=== PATIENT | female | born 1950 | race Caucasian/White ===

== ENCOUNTER 2019-11-14 08:37 | Outpatient (CLI) | payer MEDICARE, OTHER ==
[2019-11-14 15:32] LABS: BASOPHILS % (AUTO) 0.6 %; EOSINOPHILS # (AUTO) 0.1 10^3/uL (0.0-0.7); HGB - HEMOGLOBIN 15.3 g/dL (12.0-16.0); LYMPHOCYTES # (AUTO) 2.7 10^3/uL (1.5-3.5); LYMPHOCYTES % (AUTO) 43.1 %; MEAN CORPUSCULAR HEMOGLOBIN 30.9 pg (27.0-31.0); MEAN CORPUSCULAR HGB CONC 32.8 g/dL (32.0-36.0); MEAN CORPUSCULAR VOLUME 94.1 fL (81.0-99.0); MONOCYTES # (AUTO) 0.4 10^3/uL (0.0-1.0); PLT - PLATELET COUNT 263 10^3/uL (130-450); RED BLOOD COUNT 4.95 10^6/uL (4.20-5.40); RED CELL DISTRIBUTION WIDTH 13.3 % (12.0-15.0); WHITE BLOOD COUNT 6.2 x10^3/uL (4.8-10.8)
[2019-11-14 16:53] LABS: % IRON SATURATION 31 % (20-50); ALBUMIN 4.2 g/dL (3.2-5.5); ALBUMIN/GLOBULIN RATIO 1.6 (1.0-2.2); ALKALINE PHOSPHATASE 44 IU/L (42-121); ALT ALANINE AMINOTRANSFERASE 19 IU/L (10-60); AST ASPARTATE AMINOTRANSFERASE 22 IU/L (10-42); BILIRUBIN,TOTAL 0.9 mg/dL (0.2-1.0); BUN - BLOOD UREA NITROGEN 11 mg/dL (6-20); CALCIUM 8.6 mg/dL (8.5-10.3); CARBON DIOXIDE - CO2 24 mmol/L (21-32); CHLORIDE 100 mmol/L (101-111); CHOL/HDL RATIO 2.7 (<4.4); CHOLESTEROL 178 mg/dL; CREATININE 0.8 mg/dL (0.4-1.0); GLUCOSE 86 mg/dL (70-100); HDL CHOLESTEROL 66 mg/dL; IRON 110 ug/dL (28-170); LDL CHOLESTEROL,CALCULATED 95 mg/dL; LDL/HDL RATIO 1.4 (<4.4); SODIUM 134 mmol/L (135-145); TOTAL IRON BINDING CAPACITY 357 ug/dL (250-450); TOTAL PROTEIN 6.8 g/dL (6.7-8.2); TRANSFERRIN 255 mg/dL (192-382); VLDL CHOLESTEROL 17 mg/dL
[2019-11-14 17:00] LABS: THYROID STIMULATING HORMONE 0.74 uIU/mL (0.34-5.60)
[2019-11-14 17:02] LABS: FREE T3 3.75 pg/mL (2.5-3.9)
[2019-11-14 17:04] LABS: FREE T4 (FREE THYROXINE) 0.74 ng/dL (0.58-1.64)
[2019-11-14 17:07] LABS: FERRITIN 154.4 ng/mL (11.0-306.8)
== END 2019-11-14 08:38 | disposition home or self-care (01) ==
LOC: LAB.S 08:37
PROVIDERS: ATTEND Internal Medicine Endocrinology, Diabetes & Metabolism
DX: E03.8 Other specified hypothyroidism (principal); R79.89 Other specified abnormal findings of blood chemistry; E55.9 Vitamin D deficiency, unspecified; R53.83 Other fatigue
CPT/HCPCS: 36415; 80053; 80061; 82306; 82728; 83540; 83721; 83970; 84439; 84443; 84466; 84481; 85025

== ENCOUNTER 2019-12-31 08:41 | Outpatient (CLI) | payer MEDICARE, OTHER ==
[2019-12-31 16:08] LABS: THYROID STIMULATING HORMONE 0.68 uIU/mL (0.34-5.60)
[2019-12-31 16:10] LABS: FREE T3 4.49 pg/mL (2.5-3.9); FREE T4 (FREE THYROXINE) 0.8 ng/dL (0.58-1.64)
[2019-12-31 16:53] LABS: ALBUMIN 4.4 g/dL (3.2-5.5); ALBUMIN/GLOBULIN RATIO 1.6 (1.0-2.2); ALKALINE PHOSPHATASE 53 IU/L (42-121); ALT ALANINE AMINOTRANSFERASE 21 IU/L (10-60); AST ASPARTATE AMINOTRANSFERASE 22 IU/L (10-42); BILIRUBIN,TOTAL 0.9 mg/dL (0.2-1.0); BUN - BLOOD UREA NITROGEN 11 mg/dL (6-20); CALCIUM 8.8 mg/dL (8.5-10.3); CARBON DIOXIDE - CO2 25 mmol/L (21-32); CHLORIDE 96 mmol/L (101-111); CHOL/HDL RATIO 2.4 (<4.4); CHOLESTEROL 202 mg/dL; CREATININE 0.7 mg/dL (0.4-1.0); GLUCOSE 91 mg/dL (70-100); HDL CHOLESTEROL 85 mg/dL; LDL CHOLESTEROL,CALCULATED 102 mg/dL; LDL/HDL RATIO 1.2 (<4.4); SODIUM 133 mmol/L (135-145); TOTAL PROTEIN 7.1 g/dL (6.7-8.2); VLDL CHOLESTEROL 15 mg/dL
== END 2019-12-31 08:42 | disposition home or self-care (01) ==
LOC: LAB.S 08:41
PROVIDERS: ATTEND Internal Medicine
DX: N28.9 Disorder of kidney and ureter, unspecified (principal); E78.2 Mixed hyperlipidemia; E20.0 Idiopathic hypoparathyroidism
CPT/HCPCS: 36415; 80053; 80061; 80069; 82248; 82306; 83721; 84439; 84443; 84481

== ENCOUNTER 2020-09-04 08:56 | Outpatient (CLI) | payer MEDICARE, OTHER ==
[2020-09-04 14:38] LABS: BASOPHILS % (AUTO) 0.7 %; EOSINOPHILS # (AUTO) 0.1 10^3/uL (0.0-0.7); EOSINOPHILS % (AUTO) 1.4 %; HCT - HEMATOCRIT 46.1 % (37.0-47.0); HGB - HEMOGLOBIN 15.5 g/dL (12.0-16.0); LYMPHOCYTES # (AUTO) 2.4 10^3/uL (1.5-3.5); LYMPHOCYTES % (AUTO) 42.5 %; MEAN CORPUSCULAR HEMOGLOBIN 31.7 pg (27.0-31.0); MEAN CORPUSCULAR HGB CONC 33.6 g/dL (32.0-36.0); MEAN CORPUSCULAR VOLUME 94.3 fL (81.0-99.0); MEAN PLATELET VOLUME 11.7 fL (7.9-10.8); MONOCYTES # (AUTO) 0.4 10^3/uL (0.0-1.0); MONOCYTES % (AUTO) 6.8 %; NEUTROPHILS # (AUTO) 2.7 10^3/uL (1.5-6.6); NEUTROPHILS % (AUTO) 48.4 %; PLT - PLATELET COUNT 248 10^3/uL (130-450); RED BLOOD COUNT 4.89 10^6/uL (4.20-5.40); RED CELL DISTRIBUTION WIDTH 14.3 % (12.0-15.0); WHITE BLOOD COUNT 5.6 x10^3/uL (4.8-10.8)
[2020-09-04 15:13] LABS: CHOL/HDL RATIO 2.6 (<4.4); CHOLESTEROL 228 mg/dL; HDL CHOLESTEROL 87 mg/dL; LDL CHOLESTEROL,CALCULATED 129 mg/dL; LDL/HDL RATIO 1.5 (<4.4); TRIGLYCERIDES 59 mg/dL; VLDL CHOLESTEROL 12 mg/dL
[2020-09-04 15:22] LABS: THYROID STIMULATING HORMONE 2.77 uIU/mL (0.34-5.60)
[2020-09-04 15:24] LABS: FREE T3 4.33 pg/mL (2.5-3.9); FREE T4 (FREE THYROXINE) 0.73 ng/dL (0.58-1.64)
[2020-09-05 12:06] LABS: HEPATITIS C ANTIBODY NON-REACTIVE (NON-REACTIVE)
== END 2020-09-04 08:57 | disposition home or self-care (01) ==
LOC: LAB.S 08:56
PROVIDERS: ATTEND Internal Medicine Endocrinology, Diabetes & Metabolism
DX: E89.0 Postprocedural hypothyroidism (principal); E20.9 Hypoparathyroidism, unspecified; E78.2 Mixed hyperlipidemia; E78.00 Pure hypercholesterolemia, unspecified; E55.9 Vitamin D deficiency, unspecified; M85.80 Other specified disorders of bone density and structure, unspecified site; Z11.59 Encounter for screening for other viral diseases; R79.89 Other specified abnormal findings of blood chemistry
CPT/HCPCS: 36415; 80061; 82306; 83721; 84439; 84443; 84481; 85025; 86803

== ENCOUNTER 2020-09-17 10:51 | Outpatient (CLI) | payer MEDICARE, OTHER ==
[2020-09-17 15:46] LABS: ALBUMIN 4.4 g/dL (3.2-5.5); ALBUMIN/GLOBULIN RATIO 1.6 (1.0-2.2); BILIRUBIN,TOTAL 0.9 mg/dL (0.2-1.0); CALCIUM 8.7 mg/dL (8.5-10.3); CREATININE 0.7 mg/dL (0.4-1.0); POTASSIUM 3.8 mmol/L (3.5-5.0); TOTAL PROTEIN 7.1 g/dL (6.7-8.2)
[2020-09-24 14:03] LABS: ENDOMYSIAL ANTIBODY SCR IGA NEGATIVE (NEGATIVE); GLIADIN (DEAMIDATED) AB IGA 5 U (<20); GLIADIN (DEAMIDATED) AB IGG 1 U (<20); IMMUNOGLOBULIN A 172 mg/dL (70-320); TISSUE TRANSGLUTAMINASE IGA <1 U/mL; TISSUE TRANSGLUTAMINASE IGG 1 U/mL
== END 2020-09-17 10:52 | disposition home or self-care (01) ==
LOC: LAB.S 10:51
PROVIDERS: ATTEND Internal Medicine Endocrinology, Diabetes & Metabolism
DX: E03.9 Hypothyroidism, unspecified (principal); M85.80 Other specified disorders of bone density and structure, unspecified site
CPT/HCPCS: 36415; 80053; 81599; 82340; 82570; 82784; 83516; 83970; 86255

== ENCOUNTER 2021-02-03 14:13 | Outpatient (CLI) | payer MEDICARE, OTHER | END 2021-02-03 14:14 | disposition home or self-care (01) | LOC: LAB.S 14:13 | PROVIDERS: ATTEND Internal Medicine Endocrinology, Diabetes & Metabolism | DX: Z53.9 Procedure and treatment not carried out, unspecified reason (principal) ==

== ENCOUNTER 2021-02-04 08:00 | Outpatient (CLI) | payer MEDICARE, OTHER ==
[2021-02-04 20:23] LABS: ALBUMIN 4.5 g/dL (3.2-5.5); ALBUMIN/GLOBULIN RATIO 1.6 (1.0-2.2); BILIRUBIN,TOTAL 0.8 mg/dL (0.2-1.0); CALCIUM 8.7 mg/dL (8.5-10.3); CREATININE 0.9 mg/dL (0.4-1.0); POTASSIUM 3.8 mmol/L (3.5-5.0); TOTAL PROTEIN 7.4 g/dL (6.7-8.2)
[2021-02-04 20:42] LABS: THYROID STIMULATING HORMONE 0.82 uIU/mL (0.34-5.60)
[2021-02-04 20:43] LABS: FREE T3 3.82 pg/mL (2.5-3.9)
[2021-02-04 20:44] LABS: FREE T4 (FREE THYROXINE) 0.62 ng/dL (0.58-1.64)
== END 2021-02-04 23:59 ==
LOC: LAB.S 08:00
PROVIDERS: ATTEND Internal Medicine Endocrinology, Diabetes & Metabolism
DX: E03.9 Hypothyroidism, unspecified (principal); M81.8 Other osteoporosis without current pathological fracture; R79.89 Other specified abnormal findings of blood chemistry
CPT/HCPCS: 36415; 80053; 81599; 82306; 82340; 82570; 83970; 84439; 84443; 84481

== ENCOUNTER 2021-03-16 07:00 | Outpatient (CLI) | payer MEDICARE, OTHER | END 2021-03-16 23:59 | disposition home or self-care (01) | LOC: LAB.R 07:00 | PROVIDERS: ATTEND Internal Medicine Endocrinology, Diabetes & Metabolism | DX: E03.9 Hypothyroidism, unspecified (principal); M81.8 Other osteoporosis without current pathological fracture; R79.89 Other specified abnormal findings of blood chemistry | CPT/HCPCS: 81599; 82340; 82570 ==

== ENCOUNTER 2021-12-12 20:51 | Emergency (ER) | payer MEDICARE, OTHER ==
[2021-12-12] MEDS ORDERED: KETOROLAC 15 MG/ML VIAL IVP STA (21:36)
[2021-12-12] MEDS ORDERED: SODIUM CHLORIDE 0.9% 1,000 ML IV STA (21:36)
[2021-12-12] MEDS ORDERED: DEXAMETHASONE 10 MG/ML VIAL IVP STA (21:36)
--- NOTE | 2021-12-12 21:40 | ED Physician Documentation ---
PD HPI HEADACHE - Stated complaint Stated Complaint: LT SIDE PX/SHAKING - Chief complaint Chief Complaint: Neuro - History obtained from History obtained from: Patient, Family - History of Present Illness Timing - onset: How many days ago (3) Timing - onset during: Rest Timing - duration: Days (3) Timing - details: Gradual onset, Still present Location: Left Quality: Throbbing Associated symptoms: Stiff neck, Nausea, Vomiting, Numbness Improved by: Rest Worsened by: Moving Contributing factors: Other (stress). No: Anticoagulated, Possible carbon monoxide, Hypertension, Recent illness, Trauma Similar symptoms before: Diagnosis (muscle spasm in neck) Recently seen: Not recently seen - Additional information Additional information: 70-year-old Kimberly Westbrook has a history of thyroid disease and parathyroid disease and she is under considerable stress with her being diagnosed with bladder cancer and undergoing treatment and she has developed a headache on the left side as well as some pain in her neck radiating down into her left anterior chest and left arm. She has some numbness to that area and she has some tenderness to the chest wall on the upper left. She felt this was likely due to the stress and the precipitant to come into the emergency department tonight was when she developed nausea and vomiting associated with this headache. PD PAST MEDICAL HISTORY - Past Medical History Past Medical History: Yes Cardiovascular: None Respiratory: Sleep apnea, CPAP use Neuro: Headaches Endocrine/Autoimmune: HyPOthyroidism GI: None CANDLE MOLDER: Ovarian cysts : None HEENT: None Psych: Panic attacks Musculoskeletal: None Derm: None - Past Surgical History Past Surgical History: Yes /CANDLE MOLDER: Other - Present Medications Home Medications: Ambulatory Orders Medication Instructions Recorded Confirmed Levothyroxine Sodium 50 mcg PO DAILY 12/12/21 12/12/21 [Levothyroxine] Liothyronine [Cytomel] 5 mcg ORAL BID 12/12/21 12/12/21 - Allergies Allergies/Adverse Reactions: Allergies Allergy/AdvReac Type Severity Reaction Status Date / Time No Known Drug Allergies Allergy Verified 12/12/21 20:56 - Social History Does the pt smoke?: No Smoking Status: Never smoker Does the pt drink ETOH?: Yes ETOH Use: Wine Does the pt have substance abuse?: Yes Substance Use and Type: CBD oil / Products - Immunizations Immunizations are current?: Yes PD ED PE NORMAL - Vitals Vital signs reviewed: Yes - General General: Alert and oriented X 3, No acute distress, Well developed/nourished - HEENT HEENT: Atraumatic, PERRL, EOMI - Neck Neck: Supple, no meningeal sign, No bony TTP, Other (left lateral neck pain to palpation. tense paraspinous muscles on exam. normal ROM with pain. ) - Cardiac Cardiac: RRR, No murmur, Other (chest wall tenderness anterior left upper) - Respiratory Respiratory: No respiratory distress, Clear bilaterally - Abdomen Abdomen: Soft, Non tender - Back Back: No CVA TTP, No spinal TTP - Derm Derm: Normal color, Warm and dry, No rash - Extremities Extremities: No deformity, No edema - Neuro Neuro: Alert and oriented X 3, paper spooler 2-12 intact, No motor deficit, No sensory deficit, Normal speech Eye Opening: Spontaneous Motor: Obeys Commands Verbal: Oriented GCS Score: 15 - Psych Psych: Normal mood, Normal affect Results - Vitals Vitals: Vital Signs - 24 hr 12/12/21 20:57 Temperature 36.3 C L Heart Rate 92 Respiratory 16 Rate Blood Pressure 146/71 H O2 Saturation 100 Oxygen O2 Source Room air - EKG (time done) 2109 Rate: Rate (enter#) (84) Rhythm: NSR QRS: Low voltage Other comments: Other comments (early transitions ) Compare to prior EKG: Old EKG unavailable Computer interpretation: Agree with computer - Labs Labs: Laboratory Tests 12/12/21 12/12/21 12/12/21 21:43 21:43 21:43 WBC 7.8 RBC 4.45 Hgb 14.1 Hct 40.4 MCV 90.8 MCH 31.7 H MCHC 34.9 RDW 14.4 Plt Count 249 MPV 10.5 Neut # (Auto) 4.1 Lymph # (Auto) 2.9 [place] # (Auto) 0.6 Eos # (Auto) 0.1 Baso # (Auto) 0.1 Absolute Nucleated RBC 0.00 Nucleated RBC % 0.0 Sodium 140 Potassium 4.0 Chloride 105 Carbon Dioxide 26 Anion Gap 9.0 BUN 22 H Creatinine 1.0 Estimated GFR (MDRD) 55 L Glucose 104 H Calcium 8.9 Total Bilirubin 0.5 AST 21 ALT 19 Alkaline Phosphatase 49 Troponin I High Sens 2.5 Total Protein 6.8 Albumin 4.3 Globulin 2.5 Albumin/Globulin Ratio 1.7 Lipase 41 TSH 12/12/21 21:43 WBC RBC Hgb Hct MCV MCH MCHC RDW Plt Count MPV Neut # (Auto) Lymph # (Auto) [place] # (Auto) Eos # (Auto) Baso # (Auto) Absolute Nucleated RBC Nucleated RBC % Sodium Potassium Chloride Carbon Dioxide Anion Gap BUN Creatinine Estimated GFR (MDRD) Glucose Calcium Total Bilirubin AST ALT Alkaline Phosphatase Troponin I High Sens Total Protein Albumin Globulin Albumin/Globulin Ratio Lipase TSH 4.43 - Rads (name of study) CT head Radiology: Prelim report reviewed (Impression: No trauma found, no sign of intracranial hemorrhage. No evidence for presence of acute or subacute ischemic injury.), EMP read indepedently, See rad report Procedures - IVC sono (time) 2129 Bedside IVC sono: IVC measures (cm) (0.81), IVC collapsed c insp (cm) (complete), Dehydration (est 1-2 liter deficit) PD MEDICAL DECISION MAKING - ED course Complexity details: reviewed old records, reviewed results, re-evaluated patient, considered differential, d/w patient, d/w family ED course: 70-year-old female with a history of headache for 3 days to the left side has spasm in the left side of her neck dense. She has developed pain into the left anterior chest wall and numbness down the left arm associated with this. She felt this is likely due to stress and she was found to be a bit dehydrated and I became concerned about the possibility of electrolyte abnormality as well because of her history of thyroid and parathyroid disease. We did check her electrolytes found them to be normal with the exception of a mildly elevated BUN which correlated with the degree of dehydration discovered with the use of bedside ultrasound and interrogation the inferior vena cava. She did have the precipitant to come to the emergency department of vomiting with a headache and a CT scan of the head was was unremarkable. I did not feel that it was likely the patient had carotid dissection or mass in her neck and imaging of the neck was not performed. We did treat the patient symptomatically with the use of Toradol and dexamethasone as well as a liter of saline and the patient had marked improvement. Departure - Departure Disposition: 01 Home, Self Care Clinical Impression: Spastic torticollis, Dehydration, Stress reaction Condition: Stable Instructions: ED Dehydration, ED Stress React, Torticollis Follow-Up: JEAN-PAUL MILLER MD [Primary Care Provider] - Comments: Kimberly payton we found that you are a bit dehydrated and I suspect that the reason you are having the headache is related to spasm in the neck from the stress reaction that you are aware of. We have treated you for the dehydration and provided pain relief in the form of antiinflammation. The expectation with this treatment is improvement in your general symptoms. It may take as long as a week to resolve this. It will help to stay hydrated. If you have worsening of your symptoms or develop new symptoms follow-up with your primary care doctor return here to see us.
[2021-12-12 21:49] LABS: BASOPHILS # (AUTO) 0.1 10^3/uL (0.0-0.1); BASOPHILS % (AUTO) 0.8 %; EOSINOPHILS # (AUTO) 0.1 10^3/uL (0.0-0.7); HCT - HEMATOCRIT 40.4 % (37.0-47.0); HGB - HEMOGLOBIN 14.1 g/dL (12.0-16.0); LYMPHOCYTES # (AUTO) 2.9 10^3/uL (1.5-3.5); LYMPHOCYTES % (AUTO) 37.5 %; MEAN CORPUSCULAR HEMOGLOBIN 31.7 pg (27.0-31.0); MEAN CORPUSCULAR HGB CONC 34.9 g/dL (32.0-36.0); MEAN CORPUSCULAR VOLUME 90.8 fL (81.0-99.0); MEAN PLATELET VOLUME 10.5 fL (7.9-10.8); MONOCYTES # (AUTO) 0.6 10^3/uL (0.0-1.0); MONOCYTES % (AUTO) 8.1 %; NEUTROPHILS # (AUTO) 4.1 10^3/uL (1.5-6.6); NEUTROPHILS % (AUTO) 52.6 %; PLT - PLATELET COUNT 249 10^3/uL (130-450); RED BLOOD COUNT 4.45 10^6/uL (4.20-5.40); RED CELL DISTRIBUTION WIDTH 14.4 % (12.0-15.0); WHITE BLOOD COUNT 7.8 x10^3/uL (4.8-10.8)
[2021-12-12 22:08] LABS: ALBUMIN 4.3 g/dL (3.2-5.5); ALBUMIN/GLOBULIN RATIO 1.7 (1.0-2.2); BILIRUBIN,TOTAL 0.5 mg/dL (0.2-1.0); CALCIUM 8.9 mg/dL (8.5-10.3); TOTAL PROTEIN 6.8 g/dL (6.7-8.2)
--- NOTE | 2021-12-12 22:22 | CT Report ---
PROCEDURE: Noncontrast head CT. INDICATIONS: headache/vomiting TECHNIQUE: Noncontrast 4.5 mm thick angled axial sections acquired from the foramen magnum to the vertex. For r adiation dose reduction, the following was used: automated exposure control, adjustment of mA and/or kV according to patient size. COMPARISON: None. FINDINGS: Image quality: Excellent. CSF spaces: Basal cisterns are patent. No extra-axial fluid collections. Ventricles are normal in size and shape. Brain: No midline shift. No intracranial masses or hemorrhage. Echevarria-white matter interface is norm al. Skull and face: Calvarium and visualized facial bones are intact, without suspicious lesions. Sinuses: Visualized sinuses and mastoids are clear. IMPRESSION: No trauma found, no sign of intracranial hemorrhage. No evidence for presence of acute o r subacute ischemic injury. Reviewed by: Lion Quintana MD on 12/12/2021 10:20 PM PDT Approved by: Lion Quintana MD on 12/12/2021 10:20 PM PDT Station ID: [id number]
[2021-12-12 22:50] VITALS: BP 135/75
== END 2021-12-12 22:55 | disposition home or self-care (01) ==
LOC: ED 20:51
DX: G24.3 Spasmodic torticollis (principal); E86.0 Dehydration; F43.9 Reaction to severe stress, unspecified; R51.9 Headache, unspecified; E03.9 Hypothyroidism, unspecified; G47.30 Sleep apnea, unspecified; E21.5 Disorder of parathyroid gland, unspecified
CPT/HCPCS: 36415; 80053; 83690; 84443; 84484; 85025; 93005; 96361; 96374; 96375; 99283

== ENCOUNTER 2022-08-20 07:00 | Outpatient (CLI) | payer MEDICARE, OTHER ==
[2022-08-22 07:07] LABS: ADENOVIRUS F 40/41 Not Detected (Not Detected); ASTROVIRUS Not Detected (Not Detected); C DIFFICILE TOXIN A/B Not Detected (Not Detected); CAMPYLOBACTER Not Detected (Not Detected); CRYPTOSPORIDIUM Not Detected (Not Detected); CYCLOSPORA CAYETANENSIS Detected (Not Detected); ENTAMOEBA HISTOLYTICA Not Detected (Not Detected); ENTEROAGGREGATIVE E COLI Not Detected (Not Detected); ENTEROPATHOGENIC E COLI Not Detected (Not Detected); ENTEROTOXIGENIC E COLI Not Detected (Not Detected); GIARDIA LAMBLIA Not Detected (Not Detected); NOROVIRUS GI/GII Not Detected (Not Detected); PLESIOMONAS SHIGELLOIDES Not Detected (Not Detected); ROTAVIRUS A Not Detected (Not Detected); SALMONELLA Not Detected (Not Detected); SAPOVIRUS Not Detected (Not Detected); SHIGA-TOXIN-PRODUCING E COLI Not Detected (Not Detected); SHIGELLA/ENTEROINVASIVE E COLI Not Detected (Not Detected); VIBRIO Not Detected (Not Detected); VIBRIO CHOLERAE Not Detected (Not Detected); YERSINIA ENTEROCOLITICA Not Detected (Not Detected)
== END 2022-08-20 23:59 | disposition home or self-care (01) ==
LOC: LAB.S 07:00
PROVIDERS: ATTEND Emergency Medicine
DX: R19.7 Diarrhea, unspecified (principal)
CPT/HCPCS: 87507

== ENCOUNTER 2023-04-21 07:33 | Outpatient (CLI) | payer MEDICARE, OTHER ==
[2023-04-21 14:38] LABS: BASOPHILS # (AUTO) 0.1 10^3/uL (0.0-0.1); BASOPHILS % (AUTO) 0.5 %; EOSINOPHILS % (AUTO) 0.3 %; HCT - HEMATOCRIT 46.5 % (37.0-47.0); HGB - HEMOGLOBIN 15.1 g/dL (12.0-16.0); LYMPHOCYTES # (AUTO) 3.6 10^3/uL (1.5-3.5); LYMPHOCYTES % (AUTO) 36.1 %; MEAN CORPUSCULAR HEMOGLOBIN 30.9 pg (27.0-31.0); MEAN CORPUSCULAR HGB CONC 32.5 g/dL (32.0-36.0); MEAN CORPUSCULAR VOLUME 95.1 fL (81.0-99.0); MEAN PLATELET VOLUME 11.2 fL (7.9-10.8); MONOCYTES # (AUTO) 0.7 10^3/uL (0.0-1.0); MONOCYTES % (AUTO) 6.7 %; NEUTROPHILS # (AUTO) 5.6 10^3/uL (1.5-6.6); NEUTROPHILS % (AUTO) 56.2 %; PLT - PLATELET COUNT 327 10^3/uL (130-450); RED BLOOD COUNT 4.89 10^6/uL (4.20-5.40); RED CELL DISTRIBUTION WIDTH 15.2 % (12.0-15.0); WHITE BLOOD COUNT 9.9 x10^3/uL (4.8-10.8)
== END 2023-04-21 07:34 | disposition home or self-care (01) ==
LOC: LAB.S 07:33
PROVIDERS: ATTEND Internal Medicine
DX: R63.8 Other symptoms and signs concerning food and fluid intake (principal)
CPT/HCPCS: 36415; 82533; 85025

== ENCOUNTER 2023-04-28 07:17 | Outpatient (CLI) | payer MEDICARE, OTHER | END 2023-04-28 07:18 | disposition home or self-care (01) | LOC: LAB.S 07:17 | PROVIDERS: ATTEND Internal Medicine | DX: E27.49 Other adrenocortical insufficiency (principal) | CPT/HCPCS: 36415; 82024; 82533 ==

== ENCOUNTER 2023-06-30 08:00 | Outpatient (CLI) | payer MEDICARE, OTHER | END 2023-06-30 23:59 | disposition home or self-care (01) | LOC: LAB.S 08:00 | PROVIDERS: ATTEND Registered Nurse | DX: U07.1 COVID-19 (principal) ==

== ENCOUNTER 2023-07-05 08:00 | Outpatient (CLI) | payer MEDICARE, OTHER ==
[2023-07-05 15:28] LABS: BASOPHILS % (AUTO) 0.3 %; EOSINOPHILS % (AUTO) 0.1 %; HCT - HEMATOCRIT 46.4 % (37.0-47.0); HGB - HEMOGLOBIN 15.2 g/dL (12.0-16.0); LYMPHOCYTES # (AUTO) 1.7 10^3/uL (1.5-3.5); LYMPHOCYTES % (AUTO) 25.1 %; MEAN CORPUSCULAR HEMOGLOBIN 30.4 pg (27.0-31.0); MEAN CORPUSCULAR HGB CONC 32.8 g/dL (32.0-36.0); MEAN CORPUSCULAR VOLUME 92.8 fL (81.0-99.0); MEAN PLATELET VOLUME 11.7 fL (7.9-10.8); MONOCYTES # (AUTO) 0.6 10^3/uL (0.0-1.0); MONOCYTES % (AUTO) 8.2 %; NEUTROPHILS # (AUTO) 4.5 10^3/uL (1.5-6.6); PLT - PLATELET COUNT 225 10^3/uL (130-450); RED CELL DISTRIBUTION WIDTH 14.5 % (12.0-15.0); WHITE BLOOD COUNT 6.8 x10^3/uL (4.8-10.8)
[2023-07-05 15:56] LABS: ALBUMIN/GLOBULIN RATIO 1.3 (1.0-2.2); BILIRUBIN,TOTAL 0.4 mg/dL (0.2-1.0); CALCIUM 8.6 mg/dL (8.5-10.3); CREATININE 0.8 mg/dL (0.6-1.3); CRP - C-REACTIVE PROTEIN 1.5 mg/dL (<0.5); POTASSIUM 3.8 mmol/L (3.5-4.5)
--- NOTE | 2023-07-06 07:06 | XRAY Report ---
PROCEDURE: Chest 2V INDICATIONS: ACUTE COUGH TECHNIQUE: 2 views of the chest were obtained. COMPARISON: None. FINDINGS: Surgical changes and devices: Suture anchor noted in the right femoral head Lungs and pleura: No pleural effusions or pneumothorax. Lungs are clear. Mediastinum: Mediastinal contours appear normal. Heart size is normal. Bones and chest wall: No suspicious bony lesions. Overlying soft tissues appear unremarkable. IMPRESSION: Normal two-view chest x-ray Reviewed by: Darrion Cleveland MD on 07/06/2023 6:05 AM JOE Approved by: Darrion Cleveland MD on 07/06/2023 6:05 AM JOE Station ID: [id number]
== END 2023-07-05 23:59 | disposition home or self-care (01) ==
LOC: DI.S 08:00
PROVIDERS: ATTEND Registered Nurse
DX: R05.1 Acute cough (principal); A87.9 Viral meningitis, unspecified; R53.83 Other fatigue; R06.02 Shortness of breath; R51.9 Headache, unspecified
CPT/HCPCS: 36415; 80053; 85025; 85651; 86140

== ENCOUNTER 2023-07-08 08:00 | Outpatient (CLI) | payer MEDICARE, OTHER ==
--- NOTE | 2023-07-08 09:40 | XRAY Report ---
PROCEDURE: Chest 2V INDICATIONS: FATIGUE/HEADACHE/COUGH TECHNIQUE: 2 views of the chest were acquired. COMPARISON: 07/05/2023. FINDINGS: Surgical changes and devices: Postsurgical changes in right humeral head. Lungs and pleura: No pleural effusions or pneumothorax. Lungs are clear. Mediastinum: Mediastinal contours appear normal. Heart size is normal. Bones and chest wall: No suspicious bony lesions. Overlying soft tissues appear unremarkable. IMPRESSION: No acute cardiopulmonary process. Reviewed by: Abdirizak Chilel MD on 07/08/2023 9:39 AM PDT Approved by: Abdirizak Chilel MD on 07/08/2023 9:39 AM PDT Station ID: [id number]
== END 2023-07-08 23:59 | disposition home or self-care (01) ==
LOC: DI.S 08:00
PROVIDERS: ATTEND Registered Nurse
DX: R05.1 Acute cough (principal); R06.2 Wheezing; R51.9 Headache, unspecified; R53.83 Other fatigue; A87.9 Viral meningitis, unspecified; H53.149 Visual discomfort, unspecified

== ENCOUNTER 2023-07-10 10:37 | Emergency (ER) | payer MEDICARE, OTHER ==
[2023-07-10 11:22] LABS: BASOPHILS % (AUTO) 0.3 %; EOSINOPHILS % (AUTO) 0.3 %; HCT - HEMATOCRIT 44.2 % (37.0-47.0); HGB - HEMOGLOBIN 14.8 g/dL (12.0-16.0); LYMPHOCYTES % (AUTO) 29.7 %; MEAN CORPUSCULAR HEMOGLOBIN 30.5 pg (27.0-31.0); MEAN CORPUSCULAR HGB CONC 33.5 g/dL (32.0-36.0); MEAN CORPUSCULAR VOLUME 90.9 fL (81.0-99.0); MEAN PLATELET VOLUME 10.5 fL (7.9-10.8); MONOCYTES # (AUTO) 0.4 10^3/uL (0.0-1.0); MONOCYTES % (AUTO) 5.8 %; NEUTROPHILS # (AUTO) 4.3 10^3/uL (1.5-6.6); NEUTROPHILS % (AUTO) 63.5 %; PLT - PLATELET COUNT 209 10^3/uL (130-450); RED BLOOD COUNT 4.86 10^6/uL (4.20-5.40); WHITE BLOOD COUNT 6.8 x10^3/uL (4.8-10.8)
--- NOTE | 2023-07-10 11:22 | ED Physician Documentation ---
History of Present Illness - Stated complaint Stated Complaint: HEADACHE/+COVID - Chief complaint Chief Complaint: General - History obtained from History obtained from: Patient, Family - Additonal information Additional information: She has a history of hypothyroidism and is generally healthy otherwise. About 12 days ago she developed symptomatic COVID with bodyaches, cough, and significant posterior headache. She was prescribed Paxlovid but was unable to pick it up. She is been to the clinic several times and does get relief with Toradol and is also on doxycycline and has been on a Medrol Dosepak. Despite that she continues to feel terrible with significant fatigue, body aches, and posterior headache. PD PAST MEDICAL HISTORY - Past Medical History Past Medical History: Yes Cardiovascular: None Respiratory: Sleep apnea, CPAP use Neuro: Headaches Endocrine/Autoimmune: HyPOthyroidism GI: None DRUM PLATER: Ovarian cysts : None HEENT: None Psych: Panic attacks Musculoskeletal: None Derm: None - Past Surgical History Past Surgical History: Yes /DRUM PLATER: Other - Present Medications Home Medications: Ambulatory Orders Medication Instructions Recorded Confirmed Liothyronine [Cytomel] 5 mcg ORAL BID 12/12/21 07/10/23 Albuterol Sulf [Ventolin Hfa 1 - 2 puffs INH Q4HR PRN 07/10/23 07/10/23 Inhaler] Doxycycline [Vibramycin] 100 mg PO BID 07/10/23 07/10/23 Ketorolac [Toradol] 10 mg PO Q6H PRN #10 tablet 07/10/23 Levothyroxine [Synthroid] 75 mcg PO QDAC 07/10/23 07/10/23 dexAMETHasone [Decadron] 4 mg PO BIDWM #6 tablet 07/10/23 - Allergies Allergies/Adverse Reactions: Allergies Allergy/AdvReac Type Severity Reaction Status Date / Time No Known Drug Allergies Allergy Verified 07/10/23 10:50 - Social History Does the pt smoke?: No Smoking Status: Never smoker Does the pt drink ETOH?: Yes Does the pt have substance abuse?: Yes - Immunizations Immunizations are current?: Yes - POLST Patient has POLST: No PD ED PE NORMAL - Vitals Vital signs reviewed: Yes - General General: Alert and oriented X 3, No acute distress - HEENT HEENT: PERRL, EOMI - Neck Neck: Supple, no meningeal sign - Cardiac Cardiac: RRR, No murmur - Respiratory Respiratory: No respiratory distress, Clear bilaterally - Abdomen Abdomen: Non tender - Derm Derm: No rash - Neuro Neuro: Alert and oriented X 3, crew leader gluing 2-12 intact, No motor deficit, No sensory deficit, Normal speech Results - Vitals Vitals: Vital Signs - 24 hr 07/10/23 10:47 Temperature 35.4 C L Heart Rate 98 Respiratory 20 Rate Blood Pressure 128/79 O2 Saturation 96 Oxygen O2 Source Room air - Labs Labs: Laboratory Tests 07/10/23 07/10/23 11:17 11:17 WBC 6.8 RBC 4.86 Hgb 14.8 Hct 44.2 MCV 90.9 MCH 30.5 MCHC 33.5 RDW 14.0 Plt Count 209 MPV 10.5 Neut # (Auto) 4.3 Lymph # (Auto) 2.0 [place] # (Auto) 0.4 Eos # (Auto) 0.0 Baso # (Auto) 0.0 Absolute Nucleated RBC 0.00 Nucleated RBC % 0.0 Sodium 135 Potassium 3.5 Chloride 102 Carbon Dioxide 24 Anion Gap 9.0 BUN 13 Creatinine 0.9 Estimated GFR (MDRD) 62 L Glucose 92 Calcium 8.5 Phosphorus 2.7 Magnesium 1.4 L Total Bilirubin 0.4 AST 25 ALT 29 Alkaline Phosphatase 72 Total Protein 6.6 Albumin 3.7 Globulin 2.9 Albumin/Globulin Ratio 1.3 - Rads (name of study) CT of the head and chest x-ray were unremarkable. Relevant Findings:: Final report received, EMP independent interpretation of test PD Medical Decision Making - ED course ED course: She presents with symptomatic COVID with predominant headache and fatigue. She has been ill for 12 days which does seem atypical for COVID. She appears well with a normal exam. Workup in the emergency department demonstrated a normal CAT scan of the head and chest x-ray and normal CBC and CMP save a modest amount of hypomagnesemia for which she received an IV dose of 2 g of magnesium. Prior to that she had also received IV Toradol and dexamethasone as well as fluids. She has been on 2 rounds of antibiotics for COVID so far and discussed with her that there was no bacterial illness present and that may be exacerbating some of her symptoms as there is no benefit. Departure - Departure Disposition: 01 Home, Self Care Clinical Impression: COVID-19 Condition: Good Record reviewed to determine appropriate education?: Yes Instructions: ED Viral Syndrome Prescriptions: dexAMETHasone [Decadron] 4 mg PO BIDWM #6 tablet Ketorolac [Toradol] 10 mg PO Q6H PRN #10 tablet PRN Reason: pain Comments: Your chest x-ray and CAT scan are fine. So are your labs, the only exception is a modestly low magnesium level which she received some here. That should be helpful for your symptoms in addition to the Toradol and dexamethasone steroid. You should stop the antibiotics (doxycycline). That is your second round of antibiotics and I do not see any indication of a bacterial illness here. I sent your prescriptions electronically to the [facility] in [place]. Forms: PCP List
[2023-07-10] MEDS: DEXAMETHASONE 10 MG/ML VIAL IVP STA (11:26)
[2023-07-10] MEDS: KETOROLAC 15 MG/ML VIAL IVP STA (11:26)
[2023-07-10] MEDS: SODIUM CHLORIDE 0.9% 1,000 ML IV STA (11:26)
[2023-07-10 11:35] LABS: ALBUMIN 3.7 g/dL (3.2-5.5); ALBUMIN/GLOBULIN RATIO 1.3 (1.0-2.2); BILIRUBIN,TOTAL 0.4 mg/dL (0.2-1.0); CALCIUM 8.5 mg/dL (8.5-10.3); CREATININE 0.9 mg/dL (0.6-1.3); MAGNESIUM 1.4 mg/dL (1.7-2.3); PHOSPHORUS 2.7 mg/dL (2.5-5.0); POTASSIUM 3.5 mmol/L (3.5-4.5); TOTAL PROTEIN 6.6 g/dL (6.4-8.9)
--- NOTE | 2023-07-10 12:05 | CT Report ---
PROCEDURE: Head WO INDICATIONS: headache TECHNIQUE: Noncontrast 4.5 mm thick angled axial sections acquired from the foramen magnum to the vertex. For r adiation dose reduction, the following was used: automated exposure control, adjustment of mA and/or kV according to patient size. COMPARISON: 12/12/2021 FINDINGS: Image quality: Excellent. CSF spaces: Basal cisterns are patent. No extra-axial fluid collections. Ventricles are normal in size and shape. Brain: No midline shift. No intracranial masses or hemorrhage. Echevarria-white matter interface is norm al. Skull and face: Calvarium and visualized facial bones are intact, without suspicious lesions. Sinuses: Visualized sinuses and mastoids are clear. IMPRESSION: No acute intracranial pathology. No intracranial hemorrhage is seen. To the limits of this noncontrast study, no findings of masses or mass effect can be seen. Reviewed by: Seun Mendoza MD on 07/10/2023 11:04 AM JOE Approved by: Seun Mendoza MD on 07/10/2023 11:04 AM JOE Station ID: [id number]
--- NOTE | 2023-07-10 12:06 | XRAY Report ---
PROCEDURE: Chest 1V INDICATIONS: dyspnea TECHNIQUE: One view of the chest was acquired. COMPARISON: 07/08/2023, 07/05/2023 FINDINGS: Surgical changes and devices: Postoperative change of the right humeral head can be seen. Lungs and pleura: No pleural effusions or pneumothorax. Lungs are clear. Mediastinum: Mediastinal contours appear normal. Heart size is normal. Bones and chest wall: No suspicious bony lesions. No scaphoid fractures are seen. Overlying soft tissues appear unremarkable. IMPRESSION: No acute cardiopulmonary process. No focal infiltrates are seen. Reviewed by: Seun Mendoza MD on 07/10/2023 11:05 AM JOE Approved by: Seun Mendoza MD on 07/10/2023 11:05 AM JOE Station ID: [id number]
[2023-07-10] MEDS: MAGNESIUM SULFATE 2 GRAM 2 GM/50 ML BAG IV ONE (12:10)
[2023-07-10 13:17] VITALS: BP 130/71; O2SAT 95
== END 2023-07-10 13:14 | disposition home or self-care (01) ==
LOC: ED 10:37
DX: U07.1 COVID-19 (principal); E83.42 Hypomagnesemia
CPT/HCPCS: 36415; 80053; 83735; 84100; 85025; 96365; 96375; 99284

== ENCOUNTER 2023-09-28 09:03 | Outpatient (CLI) | payer MEDICARE, OTHER ==
[2023-09-28 09:32] LABS: % IRON SATURATION 26 % (20-50); IRON 98 ug/dL (50-212); TOTAL IRON BINDING CAPACITY 382 ug/dL (250-450); TRANSFERRIN 273 mg/dL (203-362)
== END 2023-09-28 09:04 | disposition home or self-care (01) ==
LOC: LAB 09:03
PROVIDERS: ATTEND Internal Medicine
DX: G47.61 Periodic limb movement disorder (principal)
CPT/HCPCS: 36415; 83540; 84466